=== PATIENT | female | born 2000 | race Caucasian/White ===

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

== ENCOUNTER 2021-03-17 17:34 | Outpatient (REF) | payer BC, SELFPAY ==
[2021-03-19 16:19] LABS: COVID-19 RT-PCR UVMMC Result Negative (Negative)
== END 2021-03-17 17:35 | disposition home or self-care (01) ==
LOC: LBN 17:34
PROVIDERS: PCP Nurse Practitioner Pediatrics; Visit Provider Physician Assistant Medical
DX: Z20.822 Contact with and (suspected) exposure to COVID-19 (principal); J06.9 Acute upper respiratory infection, unspecified
CPT/HCPCS: U0003